=== PATIENT | male | born 1930 | race Caucasian/White ===

== ENCOUNTER 2017-05-27 10:04 | Outpatient (CLI) | payer OTHER | END 2017-05-27 10:10 | disposition home or self-care (01) | LOC: LAB 10:04 | DX: C20 Malignant neoplasm of rectum (principal); Z51.81 Encounter for therapeutic drug level monitoring ==

== ENCOUNTER → 2017-05-29 | Outpatient (CLI) | payer OTHER | END | disposition home or self-care (01) | LOC: TOM 09:00 | DX: C20 Malignant neoplasm of rectum (principal); K94.09 Other complications of colostomy; Z93.3 Colostomy status; K52.0 Gastroenteritis and colitis due to radiation; K62.7 Radiation proctitis; R19.5 Other fecal abnormalities | CPT/HCPCS: 74177; Q9965 ==

== ENCOUNTER → 2017-06-11 | Outpatient (CLI) | payer OTHER | END | disposition home or self-care (01) | LOC: RAD 09:40 | DX: Z85.038 Personal history of other malignant neoplasm of large intestine (principal) ==